=== PATIENT | female | born 1945 | race Caucasian/White ===

== ENCOUNTER → 2016-10-08 | Outpatient (CLI) | payer OTHER | LOC: BMCIMAGING 10:51 | DX: Z12.31 Encounter for screening mammogram for malignant neoplasm of breast (principal) | CPT/HCPCS: G0202 ==

== ENCOUNTER → 2016-10-15 | Outpatient (CLI) | payer OTHER | LOC: FIMAGING 11:45 | PROVIDERS: ATTEND Internal Medicine | DX: R93.8 Abnormal findings on diagnostic imaging of other specified body structures (principal) | CPT/HCPCS: 76641; G0204 ==

== ENCOUNTER → 2016-10-29 | Outpatient (CLI) | payer OTHER ==
[~2016-10-29] MED LIST: DIAZEPAM 5 MG TAB ONE; THROMBIN (BOVINE) 5,000 UNIT VIAL TP ONE
== END ==
LOC: FIMAGING 08:42
PROVIDERS: ATTEND Internal Medicine
PROC: 0HBV3ZX Excision of Bilateral Breast, Percutaneous Approach, Diagnostic (ICD-10-PCS; principal; 2016-10-29)
DX: C50.912 Malignant neoplasm of unspecified site of left female breast (principal); D24.2 Benign neoplasm of left breast
CPT/HCPCS: 19083; 19084; 88360; 88361; G0204

== ENCOUNTER → 2016-11-21 | Day surgery (SDC) | payer OTHER ==
[~2016-11-21] MED LIST changes: +BUPIVACAINE 0.25% 30 ML SDV ONE; -DIAZEPAM 5 MG TAB ONE; +LIDOCAINE 1% 2 ML INJ ONE; +LIDOCAINE 1% 5 ML SDV ID PRN; +LR 1,000 ML IV ONE; +MIDAZOLAM 2 MG/2 ML VIAL ONE; +OXYCODONE/APAP 5/325 TAB ONE; +PROPOFOL 200 MG/20 ML VIAL ONE; -THROMBIN (BOVINE) 5,000 UNIT VIAL TP ONE; +ceFAZolin 2 GM/DEXTROSE 100 ML IV ONE; +fentaNYL 100 MCG/2 ML INJ ONE
--- NOTE | 2016-11-21 18:22 | GOP ---
[f rep st] OPERATIVE REPORT DATE OF OPERATION: SURGEON: Andrea Ramírez MD NEUROSURGEON: Andrea Ramírez MD, [facility] ANESTHESIOLOGIST: Juan Tse MD PREOPERATIVE DIAGNOSIS: Left breast carcinoma, status post core needle biopsy. POSTOPERATIVE DIAGNOSIS: Left breast carcinoma, status post core needle biopsy. PROCEDURE PERFORMED: 1. Left partial mastectomy with lymphadenectomy. 2. [place] lymph node mapping. 3. Adjacent tissue transfer for oncoplastic breast reconstruction with implantation of BioZorb. FINDINGS: / level 1 axillary sentinel lymph nodes negative by frozen section for evidence of meta static malignancy. Left lower outer breast tumor excised with surrounding normal fibrofatty breast tissue, submitted for intraoperative specimen mammogram, confirming the clip and tumor to be within the specimen. Additional anterior and posterior margins submitted for permanent section. ESTIMATED BLOOD LOSS: 50 mL or less. DESCRIPTION OF PROCEDURE: After informed consent was obtained, the patient was brought to the opera ting room and placed under general anesthesia. The left breast was prepped and draped in the usual fashion. The patient had a wire exiting the left breast at the 5 o'clock position directed cephalad and posteriorly. This was cut to length to facilitate draping. Before proceeding, a time-out and identification of the patient was performed. The Neoprobe was used to interrogate the axilla, and the point of maximum activity identified and ma rked on the skin with a marking pen. A transverse incision was planned, and the skin was infiltrate d with 0.25% Marcaine, incised transversely, and dissection carried out through the skin and subcuta neous tissues and superficial axillary fascia. The 3 individual sentinel nodes were identified and individually dissected from the surrounding fibrofatty tissue. Lymphovascular structures were hemoc lipped and/or cauterized, and the nodes liberated from the axilla and submitted for frozen section. These were reported by Dr. Coulter to show no evidence of metastatic malignancy. Hemostasis was se cure within the axillary cavity. Subcutaneous tissues were closed with 3-0 Monocryl suture. Skin w as closed with 4-0 Monocryl suture in subcuticular fashion. A partial mastectomy was performed through a circumareolar incision, after infiltrating the skin and subcutaneous tissues liberally with 0.25% Marcaine. An incision was made with a 15 scalpel blade b etween the 7 o'clock and 4 o'clock positions. Dissection was carried out in a subcutaneous plane, d own to the wire entry site. This was mobilized into the incision. The breast tissue around the sha ft and tip of the wire was widely excised, and the specimen removed from the field. Hemostasis was secured with cautery. Palpating the specimen, it was noted to contain a palpable firm area consiste nt with a tumor. The specimen was oriented with a margin marker kit, individually designating the a nterior, posterior, medial, lateral, superior, and inferior margins. This specimen was submitted fo r a specimen mammogram, as well as for gross inspection. While we were waiting, I took an additional anterior and posterior margin because these appeared to be the closest to the tumor within the specimen. These were individually inked and submitted for pe rmanent section. Subsequently, adjacent tissue transfer/oncoplastic reconstruction was performed as follows. The breast tissue deep to the nipple-areolar complex and lateral to this was incised approximately 1 cm deep to the skin, and dissection carried out for several centimeters in all directions, principa lly cephalad medial and lateral. The inferior flap was much thinner. This was incised and mobilize d for a distance of approximately 1 cm, staying above the inframammary fold. A BioZorb device was s elected after sizing the cavity to approximately 2 x 3 cm, and the 2 x 3 cm BioZorb prosthesis was b rought onto the field and placed within the lumpectomy cavity, and sutured to the surrounding edmonds with interrupted 3-0 Monocryl suture. The adjacent tissue flaps were then approximated with interru pted 3-0 Monocryl sutures, cantilevering the cephalad tissue flap over the BioZorb prosthesis and se curing it to the inferior flap. This gave a nice layer of healthy vascularized breast tissue over t he bioprosthesis. Subcutaneous tissues were closed with 3-0 Monocryl suture. Skin was closed with 4-0 Monocryl suture in a subcuticular fashion. Mastisol, Steri-Strips, and sterile dressings were a pplied. Needle, sponge, and instrument count were correct. COMPLICATIONS: None. /[id number]
== END | disposition home or self-care (01) ==
LOC: FSGY 06:39 → UNDOADMOB 06:39 → F3E 06:39 → EDSTATUS 10:00 → F3E 13:03
PROVIDERS: ATTEND Surgery
DX: C50.512 Malignant neoplasm of lower-outer quadrant of left female breast (principal); I10 Essential (primary) hypertension
CPT/HCPCS: 19297; 19302; 76098; 78195; A9520; C9728; J0690; J2250; J2704; J3010

== ENCOUNTER → 2017-02-02 | Outpatient (CLI) | payer OTHER | LOC: BMCIMAGING 11:04 | PROVIDERS: ATTEND Internal Medicine Hematology & Oncology | DX: Z13.820 Encounter for screening for osteoporosis (principal); M85.80 Other specified disorders of bone density and structure, unspecified site ==

== ENCOUNTER → 2017-11-03 | Outpatient (CLI) | payer OTHER | LOC: BMCIMAGING 11-02 08:43 → FIMAGING 13:28 | PROVIDERS: ATTEND Surgery | DX: Z12.31 Encounter for screening mammogram for malignant neoplasm of breast (principal) ==

== ENCOUNTER → 2018-11-04 | Outpatient (CLI) | payer OTHER | LOC: FIMAGING 13:37 | PROVIDERS: ATTEND Surgery | DX: Z12.31 Encounter for screening mammogram for malignant neoplasm of breast (principal); Z85.3 Personal history of malignant neoplasm of breast ==

== ENCOUNTER → 2018-11-16 | Outpatient (CLI) | payer OTHER | LOC: BMCIMAGING 10:56 | PROVIDERS: ATTEND Internal Medicine Hematology & Oncology | DX: Z13.820 Encounter for screening for osteoporosis (principal); Z78.0 Asymptomatic menopausal state; M81.0 Age-related osteoporosis without current pathological fracture ==